=== PATIENT | male | born 1955 | race Caucasian/White ===

== ENCOUNTER 2021-07-23 18:32 | Emergency (ER) | payer OTHER, SELFPAY ==
[2021-07-23] VITALS (11 sets, daily range): BP systolic 140–222; BP diastolic 74–105; PULSE 78–90; RESP 22; TEMP 36.2; O2SAT 95–100
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
[2021-07-23] MEDS: SODIUM CHLORIDE 0.9% 1,000 ML 1000 ML IV (19:24)
[2021-07-23 19:35] LABS: Add Manual Diff / Slide Review NO; Basophils Absolute Auto 0 /uL (0-100); Basophils Percent Auto 0.4 % (0-2); Eosinophils Absolute Auto 100 /uL (0-450); Eosinophils Percent Auto 1.3 % (2-4); Hematocrit 38.7 % (41-53); Hemoglobin 13.5 g/dL (13.5-17.5); Lymphocytes Absolute Auto 1200 /uL (1100-4500); Lymphocytes Percent Auto 16.4 % (25-40); Mean Corpuscular HGB Conc 34.8 % (30-36); Mean Corpuscular Hemoglobin 34.7 PG (26-34); Mean Corpuscular Volume 99.7 fL (80-100); Monocytes Absolute Auto 600 /uL (0-900); Monocytes Percent Auto 7.5 % (3-14); Neutrophils Absolute Auto 5600 /uL (1500-7000); Neutrophils Percent Auto 74.4 % (50-75); Platelet Count 258 X10^3/uL (150-400); Red Blood Cell Count 3.88 X10^6/uL (4.5-5.9); Red Cell Distribution Width 13.3 % (11.6-14.8); White Blood Cell Count 7.6 X10^3/uL (4.5-11.0)
[2021-07-23] MEDS: ONDANSETRON 4 MG/2 ML INJ IV (19:46)
[2021-07-23 19:51] LABS: COVID19 -Nasal RAPID Negative (Negative)
[2021-07-23 19:52] LABS: Appearance Urine UA CLEAR; Bilirubin Urine UA NEGATIVE (NEGATIVE); Color Urine UA YELLOW; Glucose Urine UA NEGATIVE (Negative); Ketones Urine UA NEGATIVE (NEGATIVE); Leukocyte Esterase Urine UA NEGATIVE (NEGATIVE); Nitrite Urine UA NEGATIVE (Negative); Occult Blood Urine UA 2+ (Negative); Protein Urine UA NEGATIVE (Negative); Specific Gravity Urine UA <=1.005 (1.000-1.035); Urobilinogen Urine UA 0.2 E.U./dL (0.2)
[2021-07-23] MEDS: TET,DIPH,PERTUSS(ACELL),VAC/PF 0.5 ML SYRINGE IM (19:56)
[2021-07-23] MEDS: HYDROMORPHONE 0.5 MG INJ IV ×2 (19:57→20:51)
[2021-07-23 20:08] LABS: Alanine Aminotransferase 43 IU/L (<50); Albumin 4.7 g/dL (3.5-5.0); Albumin Globulin Ratio 1.6 (1.0-2.8); Alkaline Phosphatase 90 U/L (38-126); BUN Creatinine Ratio 6.9 (6-22); Bilirubin Total 1.1 mg/dL (0.2-1.3); Blood Urea Nitrogen 7 mg/dL (9-20); Calcium 8.6 mg/dL (8.4-10.2); Carbon Dioxide 23 mmol/L (22-32); Chloride 91 mmol/L (98-107); Estimated Glomerular Filt Rate > 60.0 mL/min (>60); Glucose 120 mg/dL (80-110); Magnesium 1.9 mg/dL (1.6-2.3); Sodium 127 mmol/L (137-145); Total Protein 7.7 g/dL (6.3-8.2)
[2021-07-23 20:20] LABS: HEMOLYSIS 71 (0-50)
[2021-07-23 20:22] LABS: Potassium 4.6 mmol/L (3.4-5.1)
[2021-07-23 20:23] LABS: Aspartate Aminotransferase 94 IU/L (17-59)
[2021-07-23 20:25] LABS: Lactate (Lactic Acid) 4.5 mmol/L (0.7-2.1)
[2021-07-23] MEDS: LACTATED RINGERS 1,000 ML 150 ML IV (20:51)
[2021-07-23] MEDS: BACITRACIN OINT 0.9 GM PCKT 1 APPLIC TOP (20:55)
[2021-07-23 21:20] LABS: Bacteria Urine None Seen; Culture Indicated Urine Cult Not Indicated; RBC Urine None Seen (0-5/HPF); WBC Urine None Seen (0-5/HPF)
[2021-07-23 21:31] LABS: Reflexed Lactate in 2 Hours Y
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
== END 2021-07-23 21:22 | disposition short-term general hospital (02) ==
PROVIDERS: Emergency Provider Emergency Medicine
DX: T20.25XA Burn of second degree of scalp [any part], initial encounter (principal); T22.291A Burn of second degree of multiple sites of right shoulder and upper limb, except wrist and hand, initial encounter; X02.8XXA Other exposure to controlled fire in building or structure, initial encounter; Z20.822 Contact with and (suspected) exposure to COVID-19; Z23 Encounter for immunization
CPT/HCPCS: 36415; 80053; 81001; 83605; 83735; 85025; 87635; 90471; 96361; 96374; 96375; 99284; 99291; C9803; 90715; J1170; J2405